=== PATIENT | male | born 1995 | race Caucasian/White ===

== ENCOUNTER 2023-11-21 12:08 | Observation (INO) | payer SELFPAY ==
--- NOTE | ~2023-11-21 | CT_ITS ---
EXAMINATION: CT facial bones w con DATE: 11/21/2023 15:10 INDICATION: Left cheek infection and swelling. TECHNIQUE: Computed tomography (CT) of the facial bones and maxillofacial region was performed with 7 5 mL Omnipaque 350 intravenous contrast. Automated exposure control and iterative reconstruction tech [email or web address] were employed. The dose-length product was 479.38 mGy-cm. COMPARISON: None. FINDINGS: There is normal. There is left cheek soft tissue swelling. There are no pathologically enla rged lymph nodes. There is mucosal thickening in the paranasal sinuses. There are carious lesions in most of the teeth. There are periapical lucencies at teeth 3, 9, 10, 13, 19, and 20. At tooth 13, the re is breech of the buccal cortex of the alveolar process with 13 x 5 mm subperiosteal abscess. IMPRESSION: 1. Extensive dental disease with subperiosteal abscess at tooth 13. Reviewed, dictated and finalized at location E.
[2023-11-21 12:08] VITALS: BP 137/85; PULSE 88; RESP 16; TEMP 36.8; O2SAT 98
--- NOTE | 2023-11-21 13:25 | ED.DENTAL ---
HPI - Dental/Oral General Chief complaint: Dental/Oral Stated complaint: facial swelling Time Seen by Provider: 11/21/23 12:39 Source: patient Mode of arrival: ambulatory Limitations: no limitations History of Present Illness HPI Narrative: Patient presents with concern for a dental infection and pain. His left side of his face has been swelling, recently creeping up towards his eye. He was seen at [facility]. Has been on 2 courses of PO antibiotics. Trialing Tylenol and ibuprofen but can't eat. He was given a nerve block which helped for a few hours but wore off. He is supposed to see a dentist later this week. No fevers, difficulty swallowing, or dysphonia. Related Data Home Medications Medication Instructions Recorded Confirmed No Home Medications 11/21/23 11/21/23 Allergies Allergy/AdvReac Type Severity Reaction Status Date / Time No Known Allergies Allergy Verified 11/21/23 12:42 FOR[facility]LY [facility], [facility] Past Medical History Medical History Dental disease Surgical History Surgical History History of skin graft skin graft to left foot, 2018 Social History Social History Smoking status: Current some day smoker Tobacco type: e-cigarettes/vaping Additional smoking assessment comments: former smoker Alcohol intake: current Drinks per week: 3 Substance use: never Substance use type: does not use Do You Feel Safe in your Home?: Yes Lack of Transportation: No Lack of Food: Never True Current Housing: I Have Housing Concerned About Future Housing: No Difficulty Paying Gas/Electric Bills: No Difficulty Paying for Meds: No Currently Unemployed: No Education: Don't Know Difficulty w/ Childcare or Family Care: No Spiritual care concerns: No Exam Narrative: GENERAL: Well-appearing, well-nourished, and in no acute distress. HEAD: Normocephalic, atraumatic. EYES: Non injected, non icteric. Grossly normal. ENT: Nares clear, no rhinorrhea or epistaxis. Left facial swelling with small area of firmness when buccal tissue squeezed between external and internal cheek. Swelling approches periorbital area but does not involve eyelid. Extensive dental disease on the left. Missing a lower tooth. Some tenderness to palpation/percussion of multiple teeth but without gingival/peripical abscess. No trismus. Uvula midline. NECK: Supple. CHEST: Speaking in full sentences. No respiratory distress. HEART: Regular rate and rhythm. . ABDOMEN: Soft, nondistended. EXTREMITIES: Normal range of motion. No edema. SKIN: Warm, dry, no rash. NEURO: No focal deficits. Alert and oriented x3. PSYCH: Normal mood and affect. Course Vital Signs Vital signs: Vital Signs Temperature 98.2 F 11/21/23 12:08 Pulse Rate 88 11/21/23 12:08 Respiratory Rate 16 11/21/23 12:08 Blood Pressure 137/85 11/21/23 12:08 Pulse Oximetry 98 11/21/23 12:08 Temperature 97.6 F 11/22/23 14:00 Pulse Rate 70 11/22/23 14:00 Respiratory Rate 16 11/22/23 14:00 Blood Pressure 138/82 11/22/23 14:00 Pulse Oximetry 100 11/22/23 14:00 Oxygen Delivery Room Air 11/22/23 07:52 Fraction of Inspired Oxygen 21 11/22/23 07:52 MDM - Dental/Oral MDM Narrative Medical decision making narrative: Patient presents with left sided dental pain and facial swelling. In the emergency department they are afebrile with vital signs within normal limits. Patient has failed outpatient PO antibiotic therapy x2. Thus, will require observation admission for IV antibiotics. Patient verifies understandign and is in agreement. Otherwise physical exam reassuring. There is a slight area of buccal firmness though beleive this is likely more inflammatory than distinct abscess. Lactic acid is elevated initially. Blood cultures and IV fluids or
[2023-11-21] MEDS: MORPHINE SULFATE (*CRX) 4 MG/ML INJ IV PUSH ×2 (13:58→17:07)
[2023-11-21 14:03] VITALS: BP 135/87; PULSE 78; RESP 20; O2SAT 100
[2023-11-21 14:10] LABS: Basophils Percent Auto 0.2 % (0.2-1.2); Eosinophils Absolute Auto 0.1 K/mm3 (0-0.3); Hematocrit 42.1 % (42.0-52.0); Hemoglobin 14.4 g/dL (14.0-18.0); Immature Granulocyte Absolute 0.09 K/mm3 (0.00-0.031); Lymphocytes Absolute Auto 2.05 K/mm3 (0.9-3.2); Lymphocytes Percent Auto 23.1 % (18.3-44.2); Mean Corpuscular HGB Conc 34.2 g/dl (32-36); Mean Corpuscular Hemoglobin 29.3 pg (26-34); Mean Corpuscular Volume 85.6 fl (80-100); Mean Platelet Volume 9.6 fl (7.4-10.4); Monocytes Absolute Auto 0.6 K/mm3 (0.1-0.6); Monocytes Percent Auto 6.5 % (2.6-8.5); Neutrophils Percent Auto 68.2 % (45.5-73.1); Platelet Count Result 280 k/mm3 (150-375); Red Blood Count 4.92 M/mm3 (4.6-6.20); Red Cell Distribution Width 12.4 % (11.5-14.5); White Blood Count 8.9 K/mm3 (4.5-10.0)
[2023-11-21 14:22] LABS: Lactic Acid Reflex 2.9 mmol/L (0.7-2.0)
[2023-11-21 14:23] LABS: Alanine Aminotransferase 11 U/L (6-50); Alkaline Phosphatase 80 U/L (38-126); Anion Gap 10 mmol/L (4-12); Aspartate Amino Transferase 21 U/L (17-59); Bilirubin,Total 0.7 mg/dL (0.2-1.3); Blood Urea Nitrogen 13 mg/dL (9-20); Calcium 9.1 mg/dL (8.4-10.2); Carbon Dioxide 24 mmol/L (22-30); Chloride 106 mmol/L (98-107); Estimated CRCL calculation 150 ml/min; Estimated Glomerular Filt Rate > 60; Glucose 93 mg/dL (65-110); Potassium 4.1 mmol/L (3.4-5.0); Sodium 140 mmol/L (137-145)
[2023-11-21] MEDS: SODIUM CHLORIDE 0.9% IV 1,000 ML 999 ML IV CONT ×2 (14:35→15:33)
[2023-11-21] MEDS: AMPICILLIN SULB 3 GM/NS 100 ML 3 GM/100 ML VIAL IVPB ×2 (15:57→22:21)
--- NOTE | 2023-11-21 15:58 | PM.IMHP ---
H&P: HPI History of Present Illness Date/Time: 11/21/23 15:58 Chief Complaint: Facial Swelling Narrative: 27 y/o M presents here with left-sided facial swelling with no significant PMH. The patient presents here from home for further evaluation of left-sided facial swelling. He reports that he was recently seen at [facility] and was diagnosed with dental abscess. He was started on 2 different courses of antibiotics: Amoxicillin and Clindamycin. Has not finished the clindamycin course, was prescribed 7-10 days 4 times per day, and has taken 3 doses. However, despite taking these antibiotic courses he reports that the facial swelling has continued to increase. Sought care today because the swelling has now progressed to his lower left eye lid. Now has feeling that something is in his tear duct that is not relieved with wiping at it. Pain has also caused intermittent nausea. No drainage in his mouth or open wound that he is aware of. Patient is not on any medications at home and no family history of idiopathic angioedema. No previous hx of IVDU. Initial VS at presentation: 98.2? F, HR 88, RR 16, 137/85, and 98% on RA. ED workup showed: no leukocytosis, no anemia, no significant electrolyte derangements, creatinine 0.9 and GFR >60, and lactic 2.9. CT of the face showed extensive dental disease with sub periosteal abscess at tooth 13. Review of Systems Review of Systems: All systems reviewed & are unremarkable except as noted in HPI and below PMFSH Past Medical History Medical History Dental disease Surgical History Surgical History History of skin graft skin graft to left foot, 2019 Social History Social History Smoking status: Current some day smoker Tobacco type: e-cigarettes/vaping Additional smoking assessment comments: former smoker Alcohol intake: current Drinks per week: 3 Substance use: never Substance use type: does not use Do You Feel Safe in your Home?: Yes Lack of Transportation: No Lack of Food: Never True Current Housing: I Have Housing Concerned About Future Housing: No Difficulty Paying Gas/Electric Bills: No Difficulty Paying for Meds: No Currently Unemployed: No Education: Don't Know Difficulty w/ Childcare or Family Care: No Spiritual care concerns: No Meds Home Medications and Allergies Home Medications Medication Instructions Recorded Confirmed Type No Home Medications 11/21/23 11/21/23 History Allergies Allergy/AdvReac Type Severity Reaction Status Date / Time No Known Allergies Allergy Verified 11/21/23 12:42 Vital Signs Vital Signs - 24 hr 11/21/23 12:08 11/21/23 14:03 Temperature 98.2 F Pulse Rate 88 78 Respiratory Rate 16 20 Blood Pressure 137/85 135/87 Pulse Oximetry 98 100 Exam Narrative: broken teeth/poor dentition to majority if not all teeth. Edema to left cheek in its entirety and extends to lateral left nasal bridge and lower left eyelid. Eyes are fine. Very tender to the touch. Heart and lungs fine. A/Ox4 Const: General: comfortable and no acute distress Other: , male, nontoxic appearance HENMT: Face/Nose/Sinus: Normal nares present Mouth: Yes moist mucous membranes Other: broken teeth/poor dentition to majority if not all teeth. Edema to left cheek in its entirety and extends to lateral left nasal bridge and lower left eyelid. +tenderness to the touch. Eyes: General: appearance normal, both eyes and all related structures Sclera: sclerae normal Pupils: Equal, round and reactive pupils present EOM: EOMs intact bilaterally Other: Excluding edema to left lower lid Resp: Effort & Inspection: normal respiratory effort Auscultation: clear to auscultation bilaterally Cardio: Ra
[2023-11-21 17:07] LABS: Reflex Lactic Acid Yes or No Add Lactic
--- NOTE | 2023-11-21 17:12 | ADMGEN ---
This patient, Juwan Liang, was admitted to 3 [facility] Surg Room 312-01. Patient/family oriented to hospital policies and general routines including ID bracelet, bed and alarms, visiting hours, pain management, procedures, bathroom and other care routines, personal items, smoking policy, room service/diet, and visiting hours. Information on how to activate the Rapid Response Team has been discussed. Patient/Family are encouraged to report perceived risks to care and to ask questions if they do not understand what they are told or what they should do.
[2023-11-21 17:52] VITALS: BP 129/75; PULSE 85; RESP 18; TEMP 36.5; O2SAT 100
[2023-11-21 18:02] LABS: Lactic Acid 0.5 mmol/L (0.7-2.0)
[2023-11-21] MEDS: methylPREDNISolone SOD SUCC 125 MG VIAL IV PUSH (18:14)
[2023-11-21] MEDS: VANCOMYCIN 1,250 MG/NS 250 ML 1,250 MG/250 ML BAG 166.67 MG IVPB ×2 (18:48→20:37)
[2023-11-21 18:59] LABS: Hemoglobin A1C 5.3 % (<5.7)
[2023-11-21 20:35] VITALS: BP 123/76; PULSE 85; RESP 16; TEMP 36.5; O2SAT 99
[2023-11-22] MEDS: AMPICILLIN SULB 3 GM/NS 100 ML 3 GM/100 ML VIAL IVPB ×4 (03:58→21:10)
[2023-11-22 05:43] VITALS: BP 130/82; PULSE 78; RESP 18; TEMP 36.3; O2SAT 97
[2023-11-22 06:38] LABS: Basophils Percent Auto 0.1 % (0.2-1.2); Hematocrit 39.7 % (42.0-52.0); Hemoglobin 13.2 g/dL (14.0-18.0); Immature Granulocyte Absolute 0.03 K/mm3 (0.00-0.031); Immature Granulocyte Percent A 0.4 % (0-0.5); Lymphocytes Absolute Auto 0.82 K/mm3 (0.9-3.2); Lymphocytes Percent Auto 10.5 % (18.3-44.2); Mean Corpuscular HGB Conc 33.2 g/dl (32-36); Mean Corpuscular Hemoglobin 28.6 pg (26-34); Mean Corpuscular Volume 85.9 fl (80-100); Mean Platelet Volume 10.1 fl (7.4-10.4); Monocytes Absolute Auto 0.1 K/mm3 (0.1-0.6); Monocytes Percent Auto 0.8 % (2.6-8.5); Neutrophils Absolute Auto 6.9 K/mm3 (1.3-6.7); Neutrophils Percent Auto 88.2 % (45.5-73.1); Platelet Count Result 294 k/mm3 (150-375); Red Blood Count 4.62 M/mm3 (4.6-6.20); Red Cell Distribution Width 12.3 % (11.5-14.5); White Blood Count 7.8 K/mm3 (4.5-10.0)
[2023-11-22 06:47] LABS: Alanine Aminotransferase 9 U/L (6-50); Albumin Level 4.2 g/dL (3.5-5.1); Alkaline Phosphatase 88 U/L (38-126); Anion Gap 9 mmol/L (4-12); Aspartate Amino Transferase 20 U/L (17-59); Bilirubin,Total 0.4 mg/dL (0.2-1.3); Blood Urea Nitrogen 11 mg/dL (9-20); Calcium 8.8 mg/dL (8.4-10.2); Carbon Dioxide 23 mmol/L (22-30); Chloride 106 mmol/L (98-107); Estimated CRCL calculation 157 ml/min; Estimated Glomerular Filt Rate > 60; Glucose 208 mg/dL (65-110); Potassium 4.1 mmol/L (3.4-5.0); Sodium 138 mmol/L (137-145)
[2023-11-22 07:52] VITALS: O2SAT 98
[2023-11-22] MEDS: KETOROLAC 30 MG/ML VIAL (*BKC) IV PUSH ×2 (08:44→18:38)
--- NOTE | 2023-11-22 09:51 | PM.IMPN ---
Progress Note: A&P Assessment and Plan (1) Abscess, dental: Code(s): K04.7 - Periapical abscess without sinus Status: Acute Assessment and Plan: - did not meet SIRS criteria, lactic however elevated at 2.9, blood cultures drawn on 11/20 - CT face: extensive dental disease with subperiosteal abscess at tooth 13. - started on Unasyn on 11/20 - lactic 2.9 -> 0.5 - pain control with: Tylenol, Toradol, Morphine - given 1 time dose of Solu-Medrol for swelling, educated steroid will only be done once to avoid masking symptoms - trend labs - monitor airway - if improvement in swelling and pain tomorrow- will discharge Plan Patient here with dental abscess, failed Augmentin course outpatient. Started on Unasyn on 11/20, lactic initially elevated at 2.9, repeat 0.5 post-fluids and initiation of antibiotics. Blood cultures pending. Diet: regular GI Prophylaxis: Not currently indicated DVT Prophylaxis: Low risk Lines: Peripheral Code Status: Full code Time Spent With Patient Time with patient: 25 - 35 minutes Subjective Date/time seen: 11/22/23 09:51 Interval history: 27 y/o M presents here with left-sided facial swelling with no significant PMH. Pt is admitted from ed for evaluation of left-sided facial swelling. He was recently seen at [facility] - diagnosed with dental abscess. Started on Amoxicillin and Clindamycin. Has not finished the clindamycin course, was prescribed 7-10 days 4 times per day, and has taken 3 doses. He reports that the facial swelling has continued to increase. Pain has also caused intermittent nausea. pt has no significant hx and not a IVDU Initial VS at presentation: 98.2? F, HR 88, RR 16, 137/85, and 98% on RA. ED workup showed: no leukocytosis, no anemia, no significant electrolyte derangements, creatinine 0.9 and GFR >60, and lactic 2.9. CT of the face showed extensive dental disease with sub periosteal abscess at tooth 13. 11/21- pt was given a steroid dose x 1, vanc x 1 and currently receiving IV Unacin. Blood cultures drawn, CT completed- Extensive dental disease with subperiosteal abscess at tooth 13. Review of Systems Review of Systems: Pain but a little better All systems reviewed & are unremarkable except as noted in HPI and below Exam Narrative: broken teeth/poor dentition to majority if not all teeth. Edema to left cheek in its entirety and extends to lateral left nasal bridge and lower left eyelid. Eyes are fine. Very tender to the touch. A/Ox4. Const: General: comfortable and no acute distress Other: , male, nontoxic appearance HENMT: Face/Nose/Sinus: Normal nares present Mouth: Yes moist mucous membranes Other: broken teeth/poor dentition to majority if not all teeth. Edema to left cheek in its entirety and extends to lateral left nasal bridge and lower left eyelid. +tenderness to the touch. Eyes: General: appearance normal, both eyes and all related structures Sclera: sclerae normal Pupils: Equal, round and reactive pupils present EOM: EOMs intact bilaterally Other: Excluding edema to left lower lid Resp: Effort & Inspection: normal respiratory effort Auscultation: clear to auscultation bilaterally Cardio: Rate: regular rate Rhythm: regular rhythm Other: S1-S2 present without murmur, rub, ectopy Skin: General skin exam: normal color and no rashes or lesions noted Wounds: no wounds Neuro: Cranial nerves: Yes Equal, round and reactive pupils present Speech: normal speech Motor exam (neuro): 5/5 motor strength present throughout Sensory Exam: normal sensation Other: A/Ox4 Extrem: General: normal to inspection Psych: Mental Status: mental status grossly normal Affect: normal affect Other: Good insight and judgment, pleasant Objective Data Vital Signs Vital Signs: Vital Signs - 24 hr 11/21/23 12:08 11/21/23 14:03 11/21/23 17:52 Temperature 98.2 F
[2023-11-22 14:00] VITALS: BP 138/82; PULSE 70; RESP 16; TEMP 36.4; O2SAT 100
[2023-11-22] MEDS: CHLORHEXIDINE GLUCONATE 0.12% ORAL RINSE 473 ML BTL (*BKC) 15 ML SWISH/SPIT (17:53)
[2023-11-22] MEDS: HYDROcodone/acetaminophen (*CRX) 5-325 MG TABLET 1 TAB PO (20:07)
[2023-11-22 21:17] VITALS: BP 137/90; PULSE 78; RESP 16; TEMP 36.5; O2SAT 100
[2023-11-23] MEDS: AMPICILLIN SULB 3 GM/NS 100 ML 3 GM/100 ML VIAL IVPB ×3 (04:35→15:22)
[2023-11-23] MEDS: KETOROLAC 30 MG/ML VIAL (*BKC) IV PUSH (04:35)
[2023-11-23 05:29] VITALS: BP 123/91; PULSE 72; RESP 16; TEMP 36.5; O2SAT 100
[2023-11-23 05:32] LABS: Estimated CRCL calculation 139 ml/min; Estimated Glomerular Filt Rate > 60
[2023-11-23 06:33] LABS: Vancomycin Trough < 5.0 ug/mL (10.0-20.0)
[2023-11-23] MEDS: CHLORHEXIDINE GLUCONATE 0.12% ORAL RINSE 473 ML BTL (*BKC) 15 ML SWISH/SPIT (08:34)
--- NOTE | 2023-11-23 09:10 | P.PNIM_ITS ---
Progress Note: A&P Assessment and Plan (1) Abscess, dental: Code(s): K04.7 - Periapical abscess without sinus Status: Acute Assessment and Plan: - did not meet SIRS criteria, lactic however elevated at 2.9, blood cultures drawn on 11/20 - CT face: extensive dental disease with subperiosteal abscess at tooth 13. - started on Unasyn on 11/20 - lactic 2.9 -> 0.5 - pain control with: Tylenol, Toradol, Morphine - given 1 time dose of Solu-Medrol for swelling, educated steroid will only be done once to avoid masking symptoms - trend labs - monitor airway - if improvement in swelling and pain tomorrow- will discharge Plan Patient here with dental abscess, failed Augmentin course outpatient. Started on Unasyn on 11/20, lactic initially elevated at 2.9, repeat 0.5 post-fluids and initiation of antibiotics. Blood cultures pending. Diet: regular GI Prophylaxis: Not currently indicated DVT Prophylaxis: Low risk Lines: Peripheral Code Status: Full code Subjective Date/time seen: 11/23/23 09:10 Interval history: 27 y/o M presents here with left-sided facial swelling with no significant PMH. Pt is admitted from ed for evaluation of left-sided facial swelling. He was recently seen at [facility] - diagnosed with dental abscess. Started on Amoxicillin and Clindamycin. Has not finished the clindamycin course, was prescribed 7-10 days 4 times per day, and has taken 3 doses. He reports that the facial swelling has continued to increase. Pain has also caused intermittent nausea. pt has no significant hx and not a IVDU Initial VS at presentation: 98.2? F, HR 88, RR 16, 137/85, and 98% on RA. ED workup showed: no leukocytosis, no anemia, no significant electrolyte derangements, creatinine 0.9 and GFR >60, and lactic 2.9. CT of the face showed extensive dental disease with sub periosteal abscess at tooth 13. 11/21- pt was given a steroid dose x 1, vanc x 1 and currently receiving IV Unacin. Blood cultures drawn, CT completed- Extensive dental disease with subperiosteal abscess at tooth 13. Review of Systems Review of Systems: Pain but a little better All systems reviewed & are unremarkable except as noted in HPI and below Exam Narrative: broken teeth/poor dentition to majority if not all teeth. Edema to left cheek in its entirety and extends to lateral left nasal bridge and lower left eyelid. Eyes are fine. Very tender to the touch. A/Ox4. Const: General: comfortable and no acute distress Other: , male, nontoxic appearance HENMT: Face/Nose/Sinus: Normal nares present Mouth: Yes moist mucous membranes Other: broken teeth/poor dentition to majority if not all teeth. Edema to left cheek in its entirety and extends to lateral left nasal bridge and lower left eyelid. +tenderness to the touch. Eyes: General: appearance normal, both eyes and all related structures Sclera: sclerae normal Pupils: Equal, round and reactive pupils present EOM: EOMs intact bilaterally Other: Excluding edema to left lower lid Resp: Effort & Inspection: normal respiratory effort Auscultation: clear to auscultation bilaterally Cardio: Rate: regular rate Rhythm: regular rhythm Other: S1-S2 present without murmur, rub, ectopy Skin: General skin exam: normal color and no rashes or lesions noted Wounds: no wounds Neuro: Cranial nerves: Yes Equal, round and reactive pupils present Speech: normal sp
--- NOTE | 2023-11-23 09:12 | PM.DS ---
DS: Admitting Diagnosis Discharge Date 11/22 Admitting Diagnosis tooth abscess DS: Discharge Diagnosis Discharge Diagnosis (1) Abscess, dental: Code(s): K04.7 - Periapical abscess without sinus Status: Acute Assessment and Plan: - was on amoxiccilin out for few days and started on clinda with not much approvemet- was on couple of doses of clinda - did not meet SIRS criteria, lactic however elevated at 2.9, blood cultures drawn on 11/20 - CT face: extensive dental disease with subperiosteal abscess at tooth 13. - started on Unasyn on 11/20 - lactic 2.9 -> 0.5 - pain control with: Tylenol, Toradol, Morphine - given 1 time dose of Solu-Medrol for swelling, educated steroid will only be done once to avoid masking symptoms 11/22- will complete IV doses for today and will discharge - pt has f /u with dentist already - blood cultures negative. on unasin since 11/20 Plan Patient here with dental abscess, failed amoxicillin course outpatient. Started on Unasyn on 11/20, lactic initially elevated at 2.9, repeat 0.5 post-fluids and initiation of antibiotics. Blood cultures pending. Diet: regular GI Prophylaxis: Not currently indicated DVT Prophylaxis: Low risk Lines: Peripheral Code Status: Full code DS: Summary Hospital Course Hospital Course: Interval history: 27 y/o M presents here with left-sided facial swelling with no significant PMH. Pt is admitted from ed for evaluation of left-sided facial swelling. He was recently seen at [facility] - diagnosed with dental abscess. Started on Amoxicillin and Clindamycin. Has not finished the clindamycin course, was prescribed 7-10 days 4 times per day, and has taken 3 doses. He reports that the facial swelling has continued to increase. Pain has also caused intermittent nausea. pt has no significant hx and not a IVDU Initial VS at presentation: 98.2? F, HR 88, RR 16, 137/85, and 98% on RA. ED workup showed: no leukocytosis, no anemia, no significant electrolyte derangements, creatinine 0.9 and GFR >60, and lactic 2.9. CT of the face showed extensive dental disease with sub periosteal abscess at tooth 13. 11/21- pt was given a steroid dose x 1, vanc x 1 and currently receiving IV Unacin. Blood cultures drawn, CT completed- Extensive dental disease with subperiosteal abscess at tooth 13. Time spent discussing smoking cessation with patient: 3 to 10 minutes Status at Discharge Functional status at discharge: independent ambulation Overall status at discharge: patient is back to baseline Time Spent with Patient Time attestation: Total time spent providing and/or coordinating discharge services: Time spent: Less than 30 minutes Exam Narrative: swelling improved- able to eat ok. has f/u already scheduled with dentist. Const: General: comfortable and no acute distress Other: , male, nontoxic appearance HENMT: Face/Nose/Sinus: Normal nares present Mouth: Yes moist mucous membranes Eyes: General: appearance normal, both eyes and all related structures Sclera: sclerae normal Pupils: Equal, round and reactive pupils present EOM: EOMs intact bilaterally Other: Excluding edema to left lower lid Resp: Effort & Inspection: normal respiratory effort Auscultation: clear to auscultation bilaterally Cardio: Rate: regular rate Rhythm: regular rhythm Other: S1-S2 present without murmur, rub, ectopy Skin: General skin exam: normal color and no rashes or lesions noted Wounds: no wounds Neuro: Cranial nerves: Yes Equal, round and reactive pupils present Speech: normal speech Motor exam (neuro): 5/5 motor strength present throughout Sensory Exam: normal sensation Other: A/Ox4 Extrem: General: normal to inspection Psych: Mental Status: mental status grossly normal Affect: normal affect Other: Good insight and judgment, pleasant DS: Data Data Completed and Pending Completed studies chase
[2023-11-23] MEDS: HYDROcodone/acetaminophen (*CRX) 5-325 MG TABLET 1 TAB PO ×2 (10:41→14:30)
[2023-11-23 14:00] VITALS: BP 116/82; PULSE 72; RESP 16; TEMP 36.4; O2SAT 100
[2023-11-23] MEDS: CLINDAMYCIN HCL 150 MG CAP 300 MG PO (14:27)
== END 2023-11-23 16:10 | disposition home or self-care (01) ==
LOC: ANHED 12:50 → ANH3MEDSUR 16:43
PROVIDERS: Student in an Organized Health Care Education/Training Program; Admitting Provider Internal Medicine; Emergency Provider Student in an Organized Health Care Education/Training Program; Visit Provider Internal Medicine
DX: K04.7 Periapical abscess without sinus (principal); F17.290 Nicotine dependence, other tobacco product, uncomplicated
CPT/HCPCS: 36415; 70487; 80053; 80202; 82565; 83036; 83605; 85025; 87040; 96361; 96365; 96366; 96367; 96375; 96376; 99285; A4248; A9270; G0378; J0295; J1885; J2270; J2919; J3370; J7030; Q9967